=== PATIENT | female | born 1995 | race Caucasian/White ===

== ENCOUNTER 2020-04-22 10:33 | Outpatient (CLI) | payer OTHER, SELFPAY ==
--- NOTE | ~2020-04-22 | US_ITS ---
EXAMINATION: US OB <= 14 weeks fetus DATE: 04/22/2020 11:16 INDICATION: Routine care. Uncertain dates. TECHNIQUE: Real-time transabdominal pelvic ultrasound was performed. COMPARISON: None. FINDINGS: The uterus measures 9.7 x 6.4 x 7.2 cm. There is an intrauterine gestational sac. A yolk sac is ident ified. The crown rump length measures 3.0 cm, which correlates with an estimated gestational a ge of 10 weeks and 0 day(s) (+/-) 6 day(s). heart motion is identified measuring 180 beats per minute (bpm) by M-mode Doppler. There is a small subchorionic hematoma measuring 1.8 x 0.8 x 2.2 cm. The right ovary measures 2.6 x 1.3 x 1.7 cm. The left ovary measures 2.5 x 1.4 x 2.4 cm. There is no free fluid in the pelvis. IMPRESSION: 1. Single living intrauterine gestation with estimated date of delivery of 11/18/2020. 2. Small subchorionic hematoma. Reviewed, dictated and finalized at location A. INSPECTOR IMPRESSION: 1. Single living intrauterine gestation with estimated date of delivery of 10/29. 2. Small subchorionic hematoma.
== END 2020-04-22 10:34 | disposition home or self-care (01) ==
PROVIDERS: PCP Obstetrics & Gynecology; Visit Provider Obstetrics & Gynecology
DX: O20.8 Other hemorrhage in early pregnancy (principal); Z3A.10 10 weeks gestation of pregnancy
CPT/HCPCS: 76801

== ENCOUNTER 2022-08-18 23:30 | Inpatient (IN) | payer OTHER, SELFPAY ==
[2022-08-18 23:44] VITALS: BP 178/107; PULSE 69
[2022-08-18 23:46] VITALS: BP 167/93; PULSE 66
[2022-08-18] MEDS: LACTATED RINGERS 1,000 ML 125 ML IV CONT (23:50)
[2022-08-19] VITALS (19 sets, daily range): BP systolic 95–146; BP diastolic 22–109; PULSE 60–92; RESP 18–20; TEMP 36.8–37.3; O2SAT 99–100; BMI 26.4
[2022-08-19 00:37] LABS: Alanine Aminotransferase 17 U/L (6-35); Albumin Level 3.6 g/dL (3.5-5.1); Alkaline Phosphatase 132 U/L (38-126); Anion Gap 8 mmol/L (8-16); Aspartate Amino Transferase 23 U/L (14-36); Basophils Percent Auto 0.3 % (0.2-1.2); Bilirubin,Total 0.3 mg/dL (0.2-1.3); Blood Urea Nitrogen 6 mg/dL (7-17); Calcium 8.3 mg/dL (8.4-10.2); Carbon Dioxide 18 mmol/L (22-30); Chloride 108 mmol/L (98-107); Eosinophils Absolute Auto 0.2 K/mm3 (0-0.3); Eosinophils Percent Auto 1.4 % (0-4.4); Estimated Glomerular Filt Rate > 60; Glucose 80 mg/dL (65-110); Hematocrit 36.3 % (37.0-47.0); Hemoglobin 12.8 g/dL (12.0-15.0); Immature Granulocyte Absolute 0.06 K/mm3 (0.00-0.031); Immature Granulocyte Percent A 0.5 % (0-0.5); Immature Platelet Fraction Pct 22.9 % (0.9-11.2); Lymphocytes Absolute Auto 2.58 K/mm3 (0.9-3.2); Mean Corpuscular HGB Conc 35.3 g/dl (32-36); Mean Corpuscular Hemoglobin 31.9 pg (26-34); Mean Corpuscular Volume 90.5 fl (80-100); Mean Platelet Volume 13.9 fl (7.4-10.4); Monocytes Absolute Auto 0.5 K/mm3 (0.1-0.6); Monocytes Percent Auto 3.9 % (2.6-8.5); Neutrophils Absolute Auto 9.6 K/mm3 (1.3-6.7); Neutrophils Percent Auto 73.9 % (45.5-73.1); Platelet Count Result 143 k/mm3 (150-375); Potassium 3.1 mmol/L (3.4-5.0); Red Blood Count 4.01 M/mm3 (4.2-5.4); Red Cell Distribution Width 13.8 % (11.5-14.5); Sodium 134 mmol/L (137-145); White Blood Count 12.9 K/mm3 (4.5-10.0)
[2022-08-19 00:40] LABS: Uric Acid 4.8 mg/dL (2.5-7.5)
[2022-08-19] MEDS: LACTATED RINGERS 1,000 ML 125 ML IV CONT (00:40)
[2022-08-19] MEDS: OXYTOCIN 30 UNITS/NS 500 ML 30 UNITS/500 ML BAG 999 UNITS IV CONT (00:40)
--- NOTE | 2022-08-19 00:43 | WPDHPUPDATE1 ---
History and Physical Update Update Date/Time: 08/19/22 00:43 This patient is a 27-year-old female, multiparous, who presented at 38 weeks gestation on known to myself for anybody at the hospital. She delivered quickly vaginally. No concerns. History and Physical has been reviewed, including an updated exam of the patient. There are NO changes in the patient's condition. Risks, benefits, and alternatives have been discussed and questions answered. Patient agrees to proceed with procedure.
--- NOTE | 2022-08-19 00:49 | PM.OBPRVD ---
OB - Delivery Note Procedure Delivery date: 08/19/22 Procedure: normal spontaneous vaginal Induction method: None Delivery monitor: External FHT and External Uterine Route of delivery: Episiotomy description: None Laceration Description: Perineal - 1st Degree Delivery repair: vicryl Specimen: No Quantitative Blood Loss (ml): 75 Disposition: Floor Complications: none Baby Date of : 08/19/22 Time of : 00:31 Weeks of gestation at delivery: 38 Weight (pounds): 4 Weight (ounces): 13 presentation: vertex Placenta delivery description: Spontaneous score one minute: 8 score five minutes: 9
[2022-08-19 01:12] LABS: HIV 1/2 Ab P24 Ag Result Negative (Negative)
[2022-08-19 01:15] LABS: Hepatitis B Surface Antigen Negative (Negative)
[2022-08-19 01:20] LABS: Rubella IgG Antibody 21.2 IU/ML
[2022-08-19] MEDS: OXYTOCIN 30 UNITS/NS 500 ML 30 UNITS/500 ML BAG 125 UNITS IV CONT (01:20)
[2022-08-19 01:55] LABS: Amphetamine Screen Urine Negative (Negative); Barbiturate Screen Urine Negative (Negative); Benzodiazepines Screen Urine Negative (Negative); Cannabinoid Screen Urine Negative (Negative); Cocaine Screen Urine Negative (Negative); Methadone Screen Urine Negative (Negative); Opiate Screen Urine Negative (Negative); Phencyclidine Screen Urine Negative (Negative)
[2022-08-19] MEDS: WITCH HAZEL 40 PADS 1 PAD TOPICAL ×2 (03:43→04:30)
[2022-08-19] MEDS: BENZOCAINE 20% AER SPR (*SP) 56 GM CAN 1 SPRAY TOPICAL (03:43)
--- NOTE | 2022-08-19 03:52 | PC.NURSE ---
Patient transferred to post room #278 via wheelchair. Support person present. Oriented to unit, room, information board, rooming in, admission packet and security measures. Patient verbalizes understanding.
[2022-08-19] MEDS: IBUPROFEN 600 MG TABLET PO ×2 (04:29→22:16)
[2022-08-19] MEDS: DIBUCAINE 1% OINTMENT 30 GM TUBE 1 APPLIC TOPICAL (04:30)
[2022-08-19 09:23] LABS: Rapid Plasma Reagin Non-Reactive (NonReactive)
--- NOTE | 2022-08-19 12:07 | PCCCNOTE ---
Received referral for limited care. Met with pt. and her grandmother at bedside. Pt. lives in [place] with her mother, grandmother and 2 other children (ages 9 and 2). She plans to return home with them at discharge along with . 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 She states having much supportive family. She states having all needed items to care for at discharge home. She states father of is father of 2 of her children and he lives in [place], [place]. She has no concerns regarding this relationship. She states having been to all visits with her OBGYN in [place], [place] and even specialist in [place], [place] that she was referred to. She's seen Ingrid Vivar NP with [facility]. Her children see clerk of scales at [facility] in [place]. She plans for to go there as well. She plans to contact [facility]. Provided contact information as well as other resources and pt. accepted all resources. Encouraged she contact any/all of interest. Pt. denies any drug use. Her toxicology screen is negative. She denies any history with DCFS. Discussed and provided all above information to RN. RN indicates no further concerns at this time.
[2022-08-20 00:14] VITALS: BP 138/84; PULSE 83; RESP 18; TEMP 36.9; O2SAT 98
[2022-08-20 05:29] LABS: Hematocrit 29.5 % (37.0-47.0); Hemoglobin 10.2 g/dL (12.0-15.0)
--- NOTE | 2022-08-20 07:01 | PM.OBPNVD ---
OB - PN: Subj Subjective Date/time seen: 08/20/22 07:01 s/p vaginal delivery day 1 wanting to go home pain managed OB - PN: Obj Data Labs 08/20/22 05:11 08/19/22 00:15 Labs: Laboratory Results - last 24 hr 08/19/22 08/20/22 00:15 05:11 Hgb 10.2 L Hct 29.5 L RPR Non-reactive OB - PN A/P Plan day: 1 Plan: routine care and discharge home Time Spent With Patient Time: Total time spent is greater than 50% in coordination of care (as documented) at patient's floor/unit and/or counseling patient: Review of Systems Review of Systems: All systems reviewed & are unremarkable except as noted in HPI and below Exam Const: General: cooperative, healthy appearing and comfortable Resp: Effort & Inspection: normal respiratory effort Cardio: Rate: regular rate Rhythm: regular rhythm Skin: General skin exam: normal color
--- NOTE | 2022-08-20 07:02 | PM.OBDSVD ---
DS: Admitting Diagnosis Discharge Date 08/20/22 Admitting Diagnosis limited care, walk in DS: Discharge Diagnosis Discharge Diagnosis (1) Vaginal delivery: Code(s): O80 - Encounter for full-term uncomplicated delivery Status: Acute OB - DS: Summary OB Procedures : None OB Procedures Intrapartum: Spontaneous Vag Delivery OB Procedures: : None Time Spent with Patient Time attestation: Total time spent providing and/or coordinating discharge services: DS: Data Data Completed and Pending Labs on day of discharge: Labs from last 24 hours 08/20/22 08/19/22 05:11 00:15 Hgb 10.2 L Hct 29.5 L RPR Non-reactive Discharge Plan Discharge Attending physician on discharge: Hari Preciado Discharging Clinician: Mary Hernandez Patient Disposition: Home, Self-Care Activity: pelvic rest Diet: regular Patient Instructions: Antibiotic Form, How to Stop Smoking (GEN) Stand Alone Forms: General Discharge Information Follow-up/Referrals: Hari Preciado MD [Physician] - 4 Weeks Discharge Medications: New ibuprofen 600 mg Tablet 600 mg PO Q6H PRN (Reason: Cramping) Qty: 30 0RF Date of admission: 08/18/22 23:30 Primary Care Provider: Shamar Ramirez Admitting Provider: Hari Preciado Attending physician on admission: Hari Preciado Condition: Stable
[2022-08-20 07:40] VITALS: BP 147/88; PULSE 72; RESP 16; TEMP 37.2; O2SAT 99
[2022-08-20 08:00] VITALS: PULSE 72; RESP 16; O2SAT 99
[2022-08-20] MEDS: DOCUSATE SODIUM 100 MG CAPSULE PO (10:22)
[2022-08-20] MEDS: IBUPROFEN 600 MG TABLET PO (10:22)
--- NOTE | 2022-08-20 11:17 | PC.NURSE ---
Patient was given the opportunity to view the discharge video Mother & Baby Care, The First Two Weeks and to ask questions. Patient declined viewing the video and has been given the mother/baby guide for home reference.
== END 2022-08-20 17:37 | disposition home or self-care (01) | DRG 560 ==
LOC: ANHLDR 23:43 → ANHOB2 08-19 04:46
PROVIDERS: Admitting Provider Obstetrics & Gynecology; PCP Obstetrics & Gynecology; Visit Provider Obstetrics & Gynecology
DX: O62.3 Precipitate labor (principal); Z37.0 Single live birth; Z3A.38 38 weeks gestation of pregnancy; O70.0 First degree perineal laceration during delivery
CPT/HCPCS: 36415; 80053; 80307; 84550; 85014; 85018; 85025; 85055; 86592; 86703; 86762; 86850; 86900; 86901; 87340; A9270; G0432; J2590; J7120